=== PATIENT | female | born 1965 | race Caucasian/White ===

== ENCOUNTER 2016-07-18 14:14 | Emergency (ER) | payer OTHER ==
[2016-07-18 14:48] VITALS: BP 113/72
--- NOTE | 2016-07-18 15:22 | UC ---
Respiratory Complaint HPI - HPI Summary HPI Summary: Had the flu 6 weeks ago---seen pcp 1 week ago with continued cough now noticed swollen lymph right side of neck - History of Current Complaint Chief Complaint: UCRespiratory Stated Complaint: FLU SYMPTOMS Time Seen by Provider: 07/18/16 14:50 Hx Obtained From: Patient Hx Last Menstrual Period: 07/05/16 ?: No Onset/Duration: Gradual Onset, Lasting Weeks, Still Present Timing: Constant Severity Initially: Mild Severity Currently: Mild Pain Intensity: 3 Pain Scale Used: Adult Non Verbal Character: Cough: Nonproductive Aggravating Factors: Nothing Alleviating Factors: Nothing Associated Signs And Symptoms: Positive: Chills, URI - Allergies/Home Medications Allergies/Adverse Reactions: Allergies Allergy/AdvReac Type Severity Reaction Status Date / Time ct contrast dye Allergy Hives Uncoded 07/18/16 14:30 Home Medications: Home Medications Dextromethorphan-Guaifenesin [Mucinex Dm Maximum Streng 60-1200 mg] 1 tab PO SEE INSTRUCTIONS 07/18/16 [History Confirmed 07/18/16] Naproxen [Naproxen EC] 500 mg PO BID 07/18/16 [History Confirmed 07/18/16] PMH/Surg Hx/FS Hx/Imm Hx Previously Healthy: Yes Endocrine History Of: Denies: Diabetes Cardiovascular History Of: Denies: Cardiac Disorders, Hypertension Respiratory History Of: Denies: COPD, Asthma - Surgical History Surgery Procedure, Year, and Place: lung bx 2006. ovarian cyst removal 2007 - Family History Known Family History: Positive: None Family History: denies cardiovascular issues in family lineage - Social History Occupation: Employed Full-time Lives: With Family Alcohol Use: None Substance Use Type: None Smoking Status (MU): Never Smoked Tobacco - Immunization History Most Recent Influenza Vaccination: last week Most Recent Tetanus Shot: [facility] Review of Systems Constitutional: Chills Skin: Negative Eyes: Negative ENT: Negative Respiratory: Cough Cardiovascular: Negative Gastrointestinal: Negative Genitourinary: Negative Motor: Negative Neurovascular: Negative Musculoskeletal: Negative Neurological: Negative Psychological: Negative All Other Systems Reviewed And Are Negative: Yes Physical Exam Triage Information Reviewed: Yes Appearance: Well-Appearing, No Pain Distress, Well-Nourished Vital Signs: Initial Vital Signs Temp 99.3 F 07/18/16 14:34 Pulse 94 07/18/16 14:34 Resp 18 07/18/16 14:34 BP 113/72 07/18/16 14:34 Pulse Ox 97 07/18/16 14:34 Vital Signs Reviewed: Yes Eye Exam: Normal Eyes: Positive: Conjunctiva Clear ENT Exam: Normal ENT: Positive: Normal ENT inspection, Hearing grossly normal, Pharynx normal, TMs normal. Negative: Nasal congestion, Nasal drainage, Tonsillar swelling, Tonsillar exudate, Trismus, Muffled/hoarse voice Dental Exam: Normal Neck exam: Other Neck: Positive: Supple, Tenderness @ - right anterior cervical, Enlarged Nodes @ - right anterior cervical Respiratory Exam: Normal Respiratory: Positive: Chest non-tender, Lungs clear, Normal breath sounds, No respiratory distress, No accessory muscle use Cardiovascular Exam: Normal Cardiovascular: Positive: RRR, No Murmur, Pulses Normal, Brisk Capillary Refill Musculoskeletal Exam: Normal Musculoskeletal: Positive: Strength Intact, ROM Intact, No Edema Neurological Exam: Normal Neurological: Positive: Alert, Muscle Tone Normal Psychological Exam: Normal Psychological: Positive: Normal Response To Family Skin Exam: Normal UC Diagnostic Evaluation - Laboratory O2 Sat by Pulse Oximetry: 97 Respiratory Course/Dx - Course Course Of Treatment: Amoxicillin, tessalon, albuterol, increase fluids, follow with pcp in [facility] or return as needed - Differential Dx/Diagnosis Differential Diagnosis/HQI/PQRI: Asthma, Bronchitis, Laryngitis, Lower Resp Infection, Other - viral illness, lympadenopathy Provider Diagnoses: S/p viral illness, cervical lymphadenopathy Discharge - Discharge Plan Condition: Stable Disposition: HOME Prescriptions: Albuterol HFA INHALER* [Ventolin HFA Inhaler*] 2 puff INH Q4H PRN #1 mdi PRN Reason: Cough/wheeze Amoxicillin (*) 875 mg PO BID #20 tab Benzonatate CAP* [Tessalon CAP*] 100 mg PO TID PRN #40 cap PRN Reason: Cough Patient Education Materials: Lymphadenopathy (ED), How to Use a Metered-Dose Inhaler (ED), Wheezing (ED) Referrals: No Primary Care Phys,NOPCP [Primary Care Provider] - Additional Instructions: Follow with you PCP in [facility] or return as needed
== END 2016-07-18 15:44 | disposition home or self-care (01) ==
LOC: UCEAST 14:14
DX: B34.9 Viral infection, unspecified (principal); R59.1 Generalized enlarged lymph nodes; Z91.041 Radiographic dye allergy status
CPT/HCPCS: 99201; G0463